=== PATIENT | male | born 1940 | race Hispanic/Latino ===

== ENCOUNTER 2017-10-17 06:17 | Day surgery (SDC) | payer MEDICARE, BC ==
[2017-10-17 07:02] VITALS: BMI 21.6
[2017-10-17] MEDS ORDERED: Propofol 10 mg/ml Inj (20 ML) ONE (07:44)
[2017-10-17] MEDS ORDERED: Lidocaine 1% Inj (20ml) ONE (07:44)
[2017-10-17] MEDS ORDERED: Absorbable Gelatin Sponge Size 100 ONE (07:50)
[2017-10-17] MEDS ORDERED: Bupivacaine 0.25% Inj(30mL) ONE (07:50)
[2017-10-17] MEDS ORDERED: Ciprofloxacin 400mg/200ml D5W IVPB ONE (08:05)
[2017-10-17] MEDS ORDERED: Ciprofloxacin 400mg/200ml D5W 400 MG/200 ML BAG IVPB ONE (08:06)
[2017-10-17] MEDS ORDERED: ePHEDrine 50 mg/ml Inj ONE (09:09)
--- NOTE | 2017-10-17 09:21 | PCM.SURG1 ---
Surgeon's Initial Post Op Note - Surgeon's Notes Surgeon: Dr. Joe Clinic Manager: Leanne Geiger, PGY-1 Type of Anesthesia: General LMA Anesthesia Administered By: Dr Schneider Pre-Operative Diagnosis: Hemorrhoids Operative Findings: external hemorrhoids x 4 at 1 o'clock x 2; 7 o'clock and 11 o'clock position with anal fissure at 8 o'clock Post-Operative Diagnosis: hemorrhoids x 4 Operation Performed: Rigid proctosigmoidectomy w/hemorrhoidectomy x 4 Specimen/Specimens Removed: hemorrhoids x 4 Estimated Blood Loss: EBL {In ML}: 5 Blood Products Given: N/A Drains Used: No Drains Post-Op Condition: Good Date of Surgery/Procedure: 10/17/17 Time of Surgery/Procedure: 09:26
[2017-10-17] MEDS ORDERED: HYDROmorphone 0.5 mg/0.5 ml ISec IVP PRN (09:32)
[2017-10-17] MEDS ORDERED: Labetalol 5 mg/ml Inj 20ML IVP ONE (09:32)
[2017-10-17] MEDS ORDERED: Labetalol 5 mg/ml Inj 20ML ONE (09:41)
[2017-10-17] MEDS ORDERED: Labetalol 5 mg/ml Inj 20ML IV ONE (09:42)
[2017-10-17] MEDS ORDERED: Lactated Ringer's 1,000 ML IV SCH (09:45)
[2017-10-17] MEDS ORDERED: diltiaZEM 180 mg/24 Hours CD Cap PO ONE (10:04)
[2017-10-17 11:04] VITALS: RESP 16; TEMP 97.4
[2017-10-17 12:05] VITALS: O2SAT 96
[2017-10-17 13:31] VITALS: PULSE 90
--- NOTE | 2017-10-17 15:05 | OP ---
PROCEDURE DATE: 10/17/2017 PREOPERATIVE DIAGNOSES: History of rectal bleeding, rectal pain, and internal and external hemorrhoids. POSTOPERATIVE DIAGNOSES: History of rectal bleeding, rectal pain, and internal and external hemorrhoids. PROCEDURE PERFORMED: 1. Rigid proctosigmoidoscopy up to 20 cm. 2. Extensive internal and external hemorrhoidectomy. SURGEON: Manuel Joe MD. MACHINING TECHNICIAN: Leanne Geiger DO. TYPE OF ANESTHESIA: General endotracheal anesthesia. ANESTHESIA ADMINISTERED BY: Alvin Schneider MD. ESTIMATED BLOOD LOSS: Minimal. SPECIMEN: Hemorrhoids. DESCRIPTION OF PROCEDURE: The patient is a 76-year-old male with history of rectal pain and bleeding. The patient was examined in the office, noted to have internal and external hemorrhoids, and was scheduled for hemorrhoidectomy. The patient was brought to the operating room and placed on the operating table in supine position. The patient was connected to the EKG, blood pressure, and pulse oximetry monitors. The patient then underwent general endotracheal anesthesia and was placed in a lithotomy position. Previous to rigid proctosigmoidoscopy was done up to 20 cm, careful evaluation of the mucosa was done showing presence of about 3 to 4 mm polyp located on the posterior fold of the rectosigmoid at about 20 cm distance from the anal verge. The remaining portion of the mucosa of the rectum and distal sigmoid appeared to be within normal limits. The internal hemorrhoids were noted. A standard time-out procedure took place prior to starting the procedure. Everybody in the room agreed as to the patient's identity, diagnoses, and procedure to be performed. Surgical plan for the operating room as well as postoperative care was discussed with staff. We now proceeded to place a wound dilator into the rectum and carefully evaluated the hemorrhoids, there was one at 7 o'clock position, one at 11 o'clock position, and one at 1 o'clock position. The one at 1 o'clock position appeared to have 2 external portions of the hemorrhoid. I then proceeded with careful retrieval of the base of the hemorrhoid, I lifted up with triangle of clamp and ligated with 2-0 chromic stitch at the base of the hemorrhoid. Once this was done, we then carefully resected the hemorrhoid using electrocautery and proceeded with closure of the mucosal defect. Running locking stitch of 2-0 chromic was used. The hemorrhoid was completely excised together with the external portion of the hemorrhoid and the defect was closed carefully in order to avoid any involvement of the sphincter. Once this was done, we then proceeded with the second hemorrhoid at 11 o'clock position in a similar fashion using 2-0 chromic stitch. Once this was completed, we then proceeded with the hemorrhoid at 1 o'clock position and once resected, I then proceeded with the resection of the second external portion of the hemorrhoid with a separate stitch. Once all of these were completely cleared, the rectum was evaluated. There was no increased tightness noted. The area was infiltrated with Marcaine and covered with sterile dressing including Gelfoam. Once this was done, the patient was awakened, extubated, and transferred to recovery room for further observation. Manuel Joe MD
[2017-10-17 15:06] VITALS: BP 142/90
== END 2017-10-17 15:15 | disposition home or self-care (01) ==
LOC: SDS 06:17
PROVIDERS: ATTEND General Practice
DX: K64.8 Other hemorrhoids (principal); K64.4 Residual hemorrhoidal skin tags; I25.10 Atherosclerotic heart disease of native coronary artery without angina pectoris; I48.0 Paroxysmal atrial fibrillation; I10 Essential (primary) hypertension; I08.3 Combined rheumatic disorders of mitral, aortic and tricuspid valves; F32.89 Other specified depressive episodes; Z98.61 Coronary angioplasty status; Z79.82 Long term (current) use of aspirin
CPT/HCPCS: 45330; 46260; 88304; J0744; J1170; J2405; J2704; J3010; J7120 ×2